=== PATIENT | female | born 1955 | race Caucasian/White ===

== ENCOUNTER 2020-09-26 06:11 | Day surgery (SDC) | payer MEDICARE, SELFPAY ==
[2020-09-26 06:27] VITALS: BP 146/77; PULSE 69; RESP 16; TEMP 36.7; O2SAT 96
--- NOTE | 2020-09-26 06:54 | W.ANESPRE ---
General Info Date of Service Date Performed: 09/26/20 Height: 5 ft 3.5 in Weight: 63.4 kg Body Mass Index (BMI): 24.3 Surgical Procedure: Operation Date: 09/26/20 07:40 Proposed Procedures Side Surgeon p EXOSECTOMY RT MID FOOT Right Tez Chad Winters DPM Meds Allergies and Home Medications Allergies Allergy/AdvReac Type Severity Reaction Status Date / Time animal dander Allergy Intermediate Other (See Unverified 09/26/20 06:38 Comment) codeine Allergy Unknown Unknown Unverified 09/26/20 06:38 Sulfa Drugs Allergy Unknown Unknown Uncoded 09/26/20 06:38 Home Medication Medication Instructions Recorded acetaminophen 500 mg PO DAILY PRN 09/23/20 atorvastatin 10 mg PO DAILY 09/23/20 magnesium oxide 500 mg PO DAILY 09/23/20 [id number]-rtl-[id number]-FA-lutein 1 tab PO DAILY 09/23/20 [Centrum Silver Women] calcium carbonate [Calcium 600] 600 mg PO BID 09/24/20 cetirizine 10 mg PO DAILY PRN 09/24/20 meloxicam 15 mg PO DAILY 09/24/20 Current Visit Medications: Current Medications Generic Name Dose Route Start Last Admin Trade Name Freq PRN Reason Stop Dose Admin Sodium Chloride 500 mls @ 0 mls/hr 09/26/20 06:00 Saline 500ml Bag IV PRN PRN As Directed Cefazolin Sodium/Dextrose 1 gm in 50 mls @ 100 mls/hr 09/26/20 06:00 Ancef Duplex IVPB PREOP VIKASH Ringer's Solution 1,000 mls @ 80 mls/hr 09/26/20 06:00 IV 10/25/20 23:59 INFUSION [facility] IV Miscellaneous Supplies 1 each 09/26/20 06:00 Iv Access IV DIRECTED VIKASH IV Miscellaneous Supplies 1 each 09/26/20 06:00 Iv Access IV 10/25/20 23:59 DIRECTED VIKASH Povidone Iodine 0 ml 09/26/20 06:00 Povidone-Iodine Soln. 118 Ml Btl TP DIRECTED VIKASH Sodium Chloride 0 ml 09/26/20 06:00 Normal Saline Flush 10 Ml Syr IVP PRN PRN Sodium Chloride 0 ml 09/26/20 06:00 Normal Saline Flush 10 Ml Syr IV 10/25/20 23:59 PRN PRN Sodium Chloride 0 ml 09/26/20 06:00 Normal Saline 10 Ml Vial IJ 10/25/20 23:59 DIRECTED PRN Sterile Water 0 ml 09/26/20 06:00 Water,Injection,Sterile 10 Ml Vial IJ 10/25/20 23:59 DIRECTED PRN PFSH Medical History Medical History Allergic rhinitis Anesthesia of skin Cluster headache Depression Diverticulitis Erosive gastritis Gastrointestinal hemorrhage Hearing loss HTN (hypertension) Hyperlipemia Hypokalemia IBS (irritable bowel syndrome) Insomnia Numbness of toes Plantar fascial fibromatosis Postconcussion syndrome Sliding hiatal hernia Syncope and collapse Tinnitus Tubulovillous adenoma of rectum Surgical History Surgical History History of mandibular surgery Hx of cataract surgery Hx of cholecystectomy Hx of colonoscopy Hx of esophagogastroduodenoscopy Hx of hysterectomy Hx of sinus surgery Tobacco Smoking/Tobacco Use Status: Former Tobacco Use Alcohol Alcohol Intake: current Alcohol intake frequency: holidays/special occasions only Substance Use Substance use: Never Substance use type: does not use Vital Signs and Lab Results Vital Signs Most Recent Vital Signs in EMR: Most Recent Vital Signs Temp Pulse Resp BP Pulse Ox 36.7 C 69 16 146/77 H 96 09/26/20 06:27 09/26/20 06:27 09/26/20 06:27 09/26/20 06:27 09/26/20 06:27 Lab Results Blood Type / Crossmatch: No Data to Display Complete Blood Count: No Data to Display Complete Metabolic Panel: No Data to Display Liver Function Panel: No Data to Display Coagulation Panel: No Data to Display Cardiac Panel: No Data to Display Arterial Blood Gas: No Data to Display Venous Blood Gas: No Data to Display Pancreas Panel: No Data to Display Thyroid Panel: No Data to Display Infectious Disease: No Data to Display Blood Cultures: No Data to Display Toxicology Panel: No Data to Display Anesthesia Assessment and Plan Anesthesia History Personal History: PONV Family History: No Family History of Anesthesia Complications Exercise Tolerance Exercise Tolerance: Metabolic Equivalents>4 Pertinent Negatives Pertinent Negatives: No Symptoms of GERD, No Major Cardiovascular Symptoms or Complaints and No Major Pulmonary Symptoms or Complaints Cardiac & Pulmonary Exam Cardiac Exam: Normal S1/S2 Heart Sounds Pulmonary Exam: Clear Bilateral Breath Sounds Airway Exam Known Difficult Airway: No Mallampati Class: 2 Mouth Opening: Normal (> 3cm) Thyromental Distance: Greater than 3 cm Neck Range of Motion: Full ROM Neck Circumference: Normal Teeth Condition: Normal Dentition ASA Classification ASA Score: ASA 2 Emergency Case?: No NPO Status NPO Status: NPO Clears >2 hours, Solids >8 hours Anesthesia Plan Resuscitation Status: Full Code Anesthesia Technique: General Anesthesia Airway Planned: Natural Airway Monitors Used: Standard Monitors
[2020-09-26] MEDS: Lactated Ringers 1,000 ML 80 ML IV (07:12)
[2020-09-26 07:13] VITALS: BMI 24.3
--- NOTE | 2020-09-26 07:24 | HPE_ITS ---
Date of service: 09/26/20 Time of Service: 07:24 History of Present Illness History of Present Illness Chief Complaint: Symptomatic midtarsal dorsal exostosis of the right foot Narrative: 65-year-old female with increasing and chronic pain associated with a hypertrophic mid tarsal dorsal exostosis of the right foot. She is finding it difficult to wear shoes, ambulate and perform daily activities. Nonsurgical treatments have failed to provide sufficient relief of symptoms. [facility] Medical History Allergic rhinitis Anesthesia of skin Cluster headache Depression Diverticulitis Erosive gastritis Gastrointestinal hemorrhage Hearing loss HTN (hypertension) Hyperlipemia Hypokalemia IBS (irritable bowel syndrome) Insomnia Numbness of toes Plantar fascial fibromatosis Postconcussion syndrome Sliding hiatal hernia Syncope and collapse Tinnitus Tubulovillous adenoma of rectum Surgical History History of mandibular surgery Hx of cataract surgery Hx of cholecystectomy Hx of colonoscopy Hx of esophagogastroduodenoscopy Hx of hysterectomy Hx of sinus surgery Social History Smoking/Tobacco Use Status: Former Tobacco Use Quit Date: 02/05/94 Smoking risk assessment performed?: Yes Alcohol Intake: current Alcohol Intake frequency: holidays/special occasions only Drug use: Never Substance use type: does not use Do you feel safe at home: Yes Do you feel safe in your relationship?: Yes Meds Allergies and Home Medications Allergies Allergy/AdvReac Type Severity Reaction Status Date / Time animal dander Allergy Intermediate Other (See Unverified 09/26/20 06:38 Comment) codeine Allergy Unknown Unknown Unverified 09/26/20 06:38 Sulfa Drugs Allergy Unknown Unknown Uncoded 09/26/20 06:38 Home Medications Medication Instructions Recorded Confirmed Type acetaminophen 500 mg PO DAILY PRN 09/23/20 09/26/20 History atorvastatin 10 mg PO DAILY 09/23/20 09/26/20 History magnesium oxide 500 mg PO DAILY 09/23/20 09/26/20 History vymrtwup-ipd-ytqj-FA-lutein 1 tab PO DAILY 09/23/20 09/26/20 History [Centrum Silver Women] calcium carbonate [Calcium 600] 600 mg PO BID 09/24/20 09/26/20 History cetirizine 10 mg PO DAILY PRN 09/24/20 09/26/20 History meloxicam 15 mg PO DAILY 09/24/20 09/26/20 History Exam Narrative Exam Narrative: 65-year-old pleasant white female looking her stated age in no acute distress. Head is normocephalic Eyes PERRLA Hearing is adequate Uvula was midline airway looks assessable Heart had regular rate and rhythm I detected no gallops rubs or murmurs Lung kelly were clear Abdomen was soft, nontender, bowel sounds x4 Peripheral pulses were manually palpable at the ankles, no edema, capillary refill under 3 seconds to all toes Muscle groups are 5 out of 5 bilaterally Skeletal exam is remarkable for a dorsal exostosis coming from the first metatarsocuneiform joint of the right foot. There is periarticular tenderness to direct palpation. No active signs of infection Impressions: Symptomatic right midtarsal dorsal exostosis Plan: Nichole is being brought to the OR for surgical reduction of the exostosis. She understands risk and complications of surgery pertaining to pain, scarring, infection, ongoing pain within this bony segment which will be related to degenerative osteoarthritis of the joint potentially requiring additional surgical procedures possibly a fusion of the joint. She understands potential for neurologic injury. All questions have been answered in detail. No promises made to the final outcome of surgery. Informed consent has been obtained. Results Last Vital Signs Temp 36.7 C 09/26/20 06:27 Pulse 69 09/26/20 06:27 Resp 16 09/26/20 06:27 BP 146/77 H 09/26/20 06:27 Pulse Ox 96 09/26/20 06:27
[2020-09-26] MEDS: ceFAZolin 1 GM/50 ML BAG IVPB (07:45)
[2020-09-26] MEDS: Dexamethasone 4 MG/ML VIAL (08:12)
[2020-09-26] MEDS: Lidocaine 1% Pres-Free 5 ML VIAL (08:13)
[2020-09-26] MEDS: Bupivacaine 0.5% Pres-Free 30 ML VIAL (08:13)
--- NOTE | 2020-09-26 08:44 | W.PM.DSUDISC ---
Discharge Plan Disposition Patient Disposition: HOME Condition: Good Discharge Details Reason For Visit: excision exostosis, right foot Attending Provider: Tez Winters Primary Care Provider: Tiffanie Matthews Home Meds and New Rx's Prescriptions: New oxycodone-acetaminophen 5-325 mg tablet 1 tab PO Q6H PRN (Reason: post op pain) Qty: 7 RF: 0 Continued atorvastatin 10 mg Tablet 10 mg PO DAILY RF: 0 acetaminophen 500 mg Tablet 500 mg PO DAILY PRNRF: 0 Centrum Silver Women 8 mg iron-400 mcg-300 mcg Tablet 1 tab PO DAILY RF: 0 magnesium oxide 400 mg magnesium Capsule 500 mg PO DAILY RF: 0 cetirizine 10 mg Tablet 10 mg PO DAILY PRNRF: 0 meloxicam 15 mg Tablet 15 mg PO DAILY RF: 0 calcium carbonate [Calcium 600] 600 mg calcium (1,500 mg) Tablet 600 mg PO BID RF: 0 Discharge Instructions Activity:: Activity as Tolerated Remove Dressings/Wound Care:: Do Not Remove Shower/Bathe:: Cover Diet:: Normal Diet Discharge Orders Discharge Orders: Discharge Order (Routine); Ordered 09/26/20 Ordered By: Tez Winters DS: Diagnosis Discharge Diagnosis (1) Bone spur of right foot: Status: Acute
[2020-09-26 08:45] VITALS: BP 130/63; PULSE 72; RESP 16; TEMP 36.2; O2SAT 98
--- NOTE | 2020-09-26 08:52 | ROE_ITS ---
Date of service: 09/26/20 Time of Service: 08:52 Operative Note Operative Note DATE OF PROCEDURE: 09/26/20 PRE-OP DIAGNOSIS: Exostosis, right mid-foot POST-OP DIAGNOSIS: same PROCEDURE: Midtarsal dorsal exostectomy of the right foot SURGEON: Tez Winters ANESTHESIA TYPE: General LMA/ETT Refer to Anesthesia Record ESTIMATED BLOOD LOSS: 1 PATHOLOGY: none sent TOURNIQUET TIME: 36 COMPLICATIONS: None Patient was transported to: same day Patient's condition: stable Indications: 65-year-old female with increasing pain associated with a first metatarsocuneiform dorsal exostosis of the right foot. Nonoperative treatments have failed to provide relief of symptoms. Pain is interfering with shoe gear usage daily activities. Procedure Description: Nichole was brought to the operative suite, placed in the supine position with the right foot was prepped and draped in the usual sterile podiatric fashion. Timeout was performed for safe surgery per protocol. Attention was directed to the right foot which was exsanguinated and a well- padded ankle tourniquet inflated to 250 mmHg. A 3 cm incision was placed directly over the dorsal exostosis right foot. The incision was deepened in controlled depth fashion hemostasis being acquired with electrocautery as needed. Dissection was carried down moving neurologic structures medially and laterally as well as the tendons medially and laterally as needed to gain access to the bone spur. The periosteum over the exostosis was incised longitudinally directly over the exostosis. A large bone spur is appreciated over the first metatarsal cuneiform joint this was resected with osteotome and mallet the area was slightly saucerized and all rough and bony edges were rasped smooth. Copious irrigation was performed soft tissues were repaired starting with the periosteum with 3-0 Vicryl simple interrupted suture followed by the subcutaneous layers 3-0 Vicryl the subcuticular layer was gently brought together with a 4-0 Vicryl several suture followed by a running Monocryl 4-0 suture technique. Mastisol half-inch Steri-Strips were applied 4 mg dexamethasone phosphate was infused deeply into the wound Xeroform gauze fluff compression dressings were applied tourniquet was released at 36 minutes with vascularity returning immediately to all toes. Nichole left the OR with vital signs stable vascular status intact should be followed by myself in the office next week.
[2020-09-26 10:13] VITALS: BP 124/64; PULSE 64; RESP 16; TEMP 36.2; O2SAT 99
--- NOTE | 2020-09-26 11:58 | W.ANESPOSTOP ---
Postoperative Evaluation Date, Time and Location Date Performed: 09/26/20 Time Performed: 10:13 Patient Location: Day Surgery Unit Vital Signs Most Recent Imported Vital Signs: Most Recent Vital Signs Temp Pulse Resp BP Pulse Ox 36.2 C L 64 16 124/64 99 09/26/20 10:13 09/26/20 10:13 09/26/20 10:13 09/26/20 10:13 09/26/20 10:13 Pain Score Most Recent Pain Score: Most Recent Pain Score Pain Level 0 09/26/20 10:13 Assessment Mental Status: Awake (Alert & Oriented to Patient Baseline) Airway and Respiratory Function: Patent airway with normal (patient baseline) respiratory exam Cardiovascular Function: Hemodynamically Stable Hydration Status: Adequately Hydrated Nausea & Vomiting: No Nausea or Vomiting Pain: Pt. Denies Any Pain Peripheral Nerve Block: Patient did not receive a nerve block
== END 2020-09-26 10:03 | disposition home or self-care (01) ==
PROVIDERS: PCP Internal Medicine; Visit Provider Podiatrist
PROC: (CPT 28288; principal; 2020-09-26 07:30)
DX: M77.51 Other enthesopathy of right foot and ankle (principal); M89.9 Disorder of bone, unspecified; I10 Essential (primary) hypertension
CPT/HCPCS: 28104; J0690; J1100; J1885; J2001; J2250; J2405

== ENCOUNTER 2024-07-26 12:54 | Outpatient (CLI) | payer MEDICARE, SELFPAY ==
[2024-07-26 13:06] VITALS: BP 147/76; PULSE 83; RESP 18; TEMP 36.4; O2SAT 98
[2024-07-26 13:32] VITALS: PULSE 83; O2SAT 100
[2024-07-26 13:33] VITALS: BP 156/77; PULSE 81; RESP 14; O2SAT 100
[2024-07-26 13:40] VITALS: PULSE 100; PULSE 97; RESP 19; O2SAT 98
--- NOTE | 2024-07-26 13:45 | PDOC.PAIN ---
Date of service: 07/26/24 Time of Service: 13:45 Pain Managment Procedure Note Procedure Note Procedure Note: PROCEDURE NOTE BILATERAL INTRA-ARTICULAR SACROILIAC JOINT INJECTION Date of Service: July 26, 2024 Patient: Nichole Holland (Jan) Provider: Buster Charles DO, MPH COMMENTS: I previously evaluated the patient in the office and their symptoms in relation to the sacroiliac joint pain have remained the same. Pre-operative diagnosis: Sacroiliac joint dysfunction ICD-10 M53.3 Post-operative diagnosis: Same Pre-procedure pain: VAS= 9/10 Nichole Holland (Jan) has been referred to our [facility] for a Bilateral intra-articular Sacroiliac joint injection. Varela (Jan) was interviewed and the medical record reviewed. There were no medical, pharmacologic, radiographic or other structural contraindications to attempting a fluoroscopically-guided, contrast-enhanced, intra-articular Sacroiliac joint injection. The risks, benefits, and potential side effects of this procedure were reviewed with the patient. Questions and concerns were addressed. After it was clear that Varela (Jan) was fully informed about the procedure, the printed consent form was signed by the patient and myself. Varela (Jan) was placed in the prone position on the fluoroscopy table and an automated blood pressure cuff, 3 lead EKG, and pulse oximeter were applied. The skin entry point for approaching the Left sacroiliac joint was identified under the most advantageous fluoroscopic view and marked. Following thorough Chlorhexadine preparation of the skin and draping with sterile surgical drapes, 2 mls of 1% lidocaine was infiltrated into the skin at the entry point and the surrounding subcutaneous tissues. Next, a 3.5 22G spinal needle was placed under fluoroscopic guidance into the Left sacroiliac joint. Intra-articular placement was confirmed by a clear arthrogram resulting from the injection of 0.25ml of Omnipaque-240. Next, 1 ml of Depo- Medrol 40 mg/ml was injected intra-articularly with an initial reproduction of a significant component of the usual pain. This was followed with 1 ml of 1% Lidocaine. The needle was then removed without difficulty. (49 ml of Omnipaque-240 was wasted). The exact procedure was completed on the opposite sacroiliac joint. Nichole Montgomery (Jan)s vital signs were stable throughout the procedure and were as recorded in nursing records. Follow up plans and appointments were discussed with Nichole (Jeison). Post procedure instructions were given as documented in nursing records. Having met discharge criteria, Nichole (Jeison) was discharged from the [facility]. COMMENTS: Post-procedure pain: VAS= 0/10. If the patient receives at least 50% improvement in pain and/or function for at least 3 months, this procedure can be repeated if needed. I personally performed this entire procedure. BUSTER CHARLES DO, MPH ABPMR-subspecialty board certification in Pain Medicine [facility] Coding Conscious Sedation used for procedure: No CPT Codes: SI Joint Inj; incl Fluoro * BILATERAL* - [id number] ([id number]) Additional Codes: Date of Service (57009) Date of service: 07/26/24
--- NOTE | 2024-07-26 13:48 | DI.RAD_ITS ---
Exam(s) XR PAIN CLINIC SACRIOILIAC 2V EXAM: XR PAIN CLINIC SACRIOILIAC 2V CLINICAL HISTORY: DX: Sacroiliac Dysfunction. TECHNIQUE: Fluoroscopy was provided for the referring physician for guidance with performing pain cl inic injection procedure. COMPARISON: No exams were available for comparison FINDINGS: Please see procedure note for details. Fluoro time: 35.9 seconds RADIATION DOSE DELIVERED: Ka,r=8.63 mGy
[2024-07-26] MEDS: Nerve Block Tray 1 EACH MC (13:50)
[2024-07-26] MEDS: methylPREDNISolone ACETATE 80 MG/ML VIAL IJ (13:50)
[2024-07-26] MEDS: Omnipaque 240 MG/ML 50 ML BTL IJ (13:50)
== END 2024-07-26 12:55 | disposition home or self-care (01) ==
LOC: PC 12:55
PROVIDERS: PCP Internal Medicine; Visit Provider Preventive Medicine Occupational Medicine
DX: M53.3 Sacrococcygeal disorders, not elsewhere classified (principal); M54.50 Low back pain, unspecified
CPT/HCPCS: 27096; 72200; J1010; Q9967